=== PATIENT | male | born 1990 | race Caucasian/White ===

== ENCOUNTER → 2023-07-26 | Outpatient (CLI) | payer OTHER ==
[~2023-07-26] MED LIST: GADOTERATE MEGLUMINE 7.5 MMOL/15 ML VIAL IV ONE
== END | disposition home or self-care (01) ==
LOC: RAD 13:22
PROVIDERS: ATTEND Specialist
DX: I61.9 Nontraumatic intracerebral hemorrhage, unspecified (principal); R56.9 Unspecified convulsions
CPT/HCPCS: 70553; A9575